=== PATIENT | male | born 1975 | race Caucasian/White ===

== ENCOUNTER 2023-02-12 15:41 | Emergency (ER) | payer OTHER ==
[2023-02-12] MEDS ORDERED: Ketorolac 30 MG/ML SDV IM ONE (16:29)
[2023-02-12] MEDS ORDERED: Acetaminophen 500 MG Tab PO ONE (16:30)
[2023-02-12] MEDS ORDERED: Diazepam 5 MG Tab PO ONE (16:30)
[2023-02-12] MEDS ORDERED: predniSONE 20 MG Tab PO STA (16:31)
[2023-02-12] MEDS ORDERED: HYDROmorphone 1 MG/ML Syringe IM ONE (17:20)
== END 2023-02-12 18:07 | disposition home or self-care (01) ==
LOC: MW.ED 15:41
DX: M54.2 Cervicalgia (principal); M54.6 Pain in thoracic spine; V89.2XXA Person injured in unspecified motor-vehicle accident, traffic, initial encounter; Y92.410 Unspecified street and highway as the place of occurrence of the external cause
CPT/HCPCS: 72125; 96372; 99284; A9270; J1170; J1885